=== PATIENT | female | born 1945 | race Caucasian/White ===

== ENCOUNTER 2025-05-16 13:39 | Outpatient (CLI) | payer MEDICARE ==
[2025-05-16 15:06] LABS: Estimated GFR - POC 51.0
== END 2025-05-16 13:40 | disposition home or self-care (01) ==
LOC: CSHCT 13:39
PROVIDERS: ATTEND Nurse Practitioner Family
DX: I77.810 Thoracic aortic ectasia (principal); K44.9 Diaphragmatic hernia without obstruction or gangrene; N28.1 Cyst of kidney, acquired; N13.30 Unspecified hydronephrosis; K76.9 Liver disease, unspecified
CPT/HCPCS: 36415; 71275; 82565